=== PATIENT | male | born 1930 | race Caucasian/White ===

== ENCOUNTER → 2017-11-05 | Outpatient (CLI) | payer OTHER ==
[~2017-11-05] MED LIST: ACET500 PO; ALBU90OI INH; AMOCLA500 PO; ASCO500 PO; Acetaminophen325 M1 PO; BISA10S PR; CALMAGZIN PO; CEPH500 PO; CETI5 PO; CHOL10002 PO; CLARITIN10 MG PO; CVS DISPOSABLE399 ML PR; DOCU100 PO; ELIQUIS5 MG PO; FURO20 PO; Ferrous Sulfat324 MG PO; GABA400 PO; HYDACE5; HYDR1TAB94 PO; Ipratropium Bro30 ML; LIDO5TP TOP; LIDO700A20 TOP; LISI20; LORA10ER; LORA10ER PO; MAGOXI400 PO; MELA3 PO; METO25ER; METO50 PO; METO50ER; MULVIT PO; MULVITMINF PO; Milk Of Ma400 MG/5 M PO; Mirtazapine7.5 MG PO; POTA20PAC PO; SENN187 PO; Stool Softener100 MG PO; TAMS.4ER PO; TERA2; TERA5 PO; TRAM50 PO; TRIHYD253A; WARF5; WARF5 PO; WARF7.5 PO; Zestril40 MG PO
[2017-11-05 12:49] LABS: Hematocrit 40.4 % (37.0-53.0); Hemoglobin 13.2 g/dL (13.5-17.5); Mean Corpuscular HGB 29.7 pg (26.0-34.0); Mean Corpuscular HGB Conc 32.7 g/dL (31.5-36.5); Mean Corpuscular Volume 91 fL (80-100); Platelet Count 150 K/mm3 (150-400); RDW Coefficient Variation 14.1 % (11.7-14.2); Red Blood Cell Count 4.44 M/mm3 (4.30-5.90); White Blood Cell Count 3.37 K/mm3 (4.00-11.30)
[2017-11-05 12:57] LABS: Anion Gap 4 mmol/L (6-16); Blood Urea Nitrogen 17 mg/dL (8-24); Bun/Creatinine Ratio 21.5 (12.0-20.0); CO2, Blood 29 mmol/L (21-32); Calcium, Blood 8.6 mg/dL (8.5-10.1); Chloride, Blood 107 mmol/L (98-108); Creatinine, Blood 0.79 mg/dL (0.60-1.20); Glomerular Filtration Rate >60 (60-); Glucose, Blood 80 mg/dL (70-99); Potassium, Blood 4.3 mmol/L (3.5-5.5); Sodium, Blood 140 mmol/L (136-145)
[2017-11-05 15:00] LABS: Source, Urine Clean Catch
[2017-11-05 15:07] LABS: Appearance, Urine Clear (Clear); Bilirubin, Urine Neg (Neg); Blood, Urine Neg (Neg); Color, Urine Yellow (P-Yellow); Glucose Qualitative, Urine Neg (Neg); Ketones, Urine Neg (Neg); Leukocyte Esterase, Urine Neg (Neg); Nitrite, Urine Neg (Neg); Protein, Urine 3+ (Neg); Urobilinogen, Urine NORM (Normal)
[2017-11-05 15:25] LABS: Bacteria Rare /hpf; Mucus Light (0-Heavy); Red Blood Cells, Urine Not Seen /hpf (0-2); Squamous Epithelial Cells Rare /hpf (Few); White Blood Cells, Urine Not Seen /hpf (0-5)
== END | disposition home or self-care (01) ==
LOC: EDSTATUS 09:31 → LAB UVN 12:27
PROVIDERS: Family Medicine
DX: I48.2 Chronic atrial fibrillation (principal); D64.9 Anemia, unspecified; I10 Essential (primary) hypertension; J44.9 Chronic obstructive pulmonary disease, unspecified; Z89.512 Acquired absence of left leg below knee
CPT/HCPCS: 80048; 81001; 85027

== ENCOUNTER → 2018-03-19 | Outpatient (CLI) | payer OTHER ==
[~2018-03-19] MED LIST changes: +ALBU3IS INH; +ATROPINE 0.01%-10 ML SL; -Acetaminophen325 M1 PO; +Acetaminophen325 M1 PR; +Colace100 MG PO; +LORA2L PO; +METO25ER PO; +MIRALAX17 GM PO; +MORP20L SL; +ONDA4ODT MM; +OSEL75CA PO; +OXYC5 PO; +QUET25 PO; +SCOPOLAMINE1 EACH TOP
[2018-03-19 22:02] LABS: Bilirubin, Urine Neg (Neg); Blood, Urine Neg (Neg); Glucose Qualitative, Urine 1+ (Neg); Ketones, Urine 1+ (Neg); Leukocyte Esterase, Urine Neg (Neg); Nitrite, Urine Neg (Neg); Protein, Urine 4+ (Neg); Specific Gravity, Urine 1.025 (1.003-1.022); Urobilinogen, Urine NORM (Normal)
[2018-03-19 22:16] LABS: Appearance, Urine Hazy (Clear); Color, Urine Yellow (P-Yellow)
[2018-03-19 22:17] LABS: Amorphous Mod ({null, 0-Heavy}); Bacteria Few /hpf; Hyaline Casts 0-2 /lpf (0-2); Red Blood Cells, Urine Not Seen /hpf (0-2); Squamous Epithelial Cells Few /hpf (Few); White Blood Cells, Urine 0-2 /hpf (0-5)
== END | disposition home or self-care (01) ==
LOC: EDSTATUS 09:34 → LAB UVN 21:43
PROVIDERS: Family Medicine
DX: R10.9 Unspecified abdominal pain (principal)
CPT/HCPCS: 81001

== ENCOUNTER → 2018-03-26 | Outpatient (CLI) | payer OTHER ==
[2018-03-26 13:47] LABS: Source, Urine Clean Catch
[2018-03-26 14:09] LABS: Appearance, Urine Clear (Clear); Bilirubin, Urine Neg (Neg); Blood, Urine Neg (Neg); Color, Urine Yellow (P-Yellow); Glucose Qualitative, Urine Neg (Neg); Ketones, Urine Neg (Neg); Leukocyte Esterase, Urine Neg (Neg); Nitrite, Urine Neg (Neg); Protein, Urine 4+ (Neg); Urobilinogen, Urine NORM (Normal)
[2018-03-26 14:23] LABS: Red Blood Cells, Urine 0-2 /hpf (0-2); Squamous Epithelial Cells Rare /hpf (Few); White Blood Cells, Urine 0-2 /hpf (0-5)
[2018-03-26 14:24] LABS: Bacteria Rare /hpf
== END | disposition home or self-care (01) ==
LOC: EDSTATUS 09:32 → LAB UVN 13:39
PROVIDERS: Family Medicine
DX: N39.0 Urinary tract infection, site not specified (principal)
CPT/HCPCS: 81001

== ENCOUNTER → 2018-03-31 | Outpatient (CLI) | payer OTHER ==
[2018-03-31 11:46] LABS: Hematocrit 38.5 % (37.0-53.0); Hemoglobin 12.2 g/dL (13.5-17.5); Mean Corpuscular HGB 28.2 pg (26.0-34.0); Mean Corpuscular HGB Conc 31.7 g/dL (31.5-36.5); Mean Platelet Volume 9.7 fL (9.1-12.4); Platelet Count 153 K/mm3 (150-400); RDW Coefficient Variation 13.5 % (11.7-14.2); RDW Standard Deviation 43.5 fL (35.1-46.3); Red Blood Cell Count 4.32 M/mm3 (4.30-5.90); White Blood Cell Count 6.87 K/mm3 (4.00-11.30)
[2018-03-31 11:47] LABS: Mean Corpuscular Volume 89 fL (80-100)
[2018-03-31 12:08] LABS: Alanine Aminotransfer (ALT/SGP 102 U/L (12-78); Albumin, Blood 2.2 g/dL (3.4-5.0); Albumin/Globulin Ratio 0.6 (0.8-1.8); Alk Phos 168 U/L (50-136); Anion Gap 7 mmol/L (6-16); Aspartate Aminotrans (AST/SGOT 247 U/L (12-37); Bilirubin, Total 0.5 mg/dL (0.1-1.0); Blood Urea Nitrogen 32 mg/dL (8-24); Bun/Creatinine Ratio 28.1 (12.0-20.0); CO2, Blood 27 mmol/L (21-32); Calcium, Blood 8.1 mg/dL (8.5-10.1); Chloride, Blood 110 mmol/L (98-108); Creatinine, Blood 1.14 mg/dL (0.60-1.20); Globulin, Blood 3.8 g/dL (2.2-4.0); Glomerular Filtration Rate >60 (60-); Glucose, Blood 109 mg/dL (70-99); Potassium, Blood 4.4 mmol/L (3.5-5.5); Sodium, Blood 144 mmol/L (136-145)
== END | disposition home or self-care (01) ==
LOC: EDSTATUS 09:34 → LAB UVN 11:39
PROVIDERS: Family Medicine
DX: R94.5 Abnormal results of liver function studies (principal); D64.9 Anemia, unspecified; F02.81 Dementia in other diseases classified elsewhere, unspecified severity, with behavioral disturbance; E72.20 Disorder of urea cycle metabolism, unspecified
CPT/HCPCS: 80053; 82140; 85027

== ENCOUNTER 2018-04-02 16:35 | Inpatient (IN) | payer OTHER ==
[~2018-04-02] VITALS: Ht 188 cm; Wt 74.0 kg
[~2018-04-02 16:35] MED LIST changes: -ALBU3IS INH; -ATROPINE 0.01%-10 ML SL; -Colace100 MG PO; -LORA2L PO; -METO25ER PO; -MIRALAX17 GM PO; -MORP20L SL; -ONDA4ODT MM; -OSEL75CA PO; -OXYC5 PO; -QUET25 PO; -SCOPOLAMINE1 EACH TOP
[2018-04-02 18:03] LABS: International Normalized Ratio 1.42; Prothrombin Time Results 14.6 Sec (9.7-11.5)
[2018-04-02] MEDS ORDERED: MIRALAX17 GM PO (20:24)
[2018-04-02] MEDS ORDERED: OSEL75CA PO (20:26)
[2018-04-02] MEDS ORDERED: Colace100 MG PO (20:27)
[2018-04-02] MEDS ORDERED: QUET25 PO (20:30)
[2018-04-02] MEDS ORDERED: OXYC5 PO (20:35)
--- NOTE | 2018-04-03 05:19 | NUR ---
Rn summary: Patient was admitted to floor via stretcher from the ED last evening at 2001. Son is also at bedside. Son states he wants father to be a full code. Pt is confused, oriented to self, speech is sometimes unclear but he follows directions and is coopertive when asked. He does call out for "help" about every 5-10 minutes but forgets most of the time what he wants. Pt was medicated for pain x1 at 0126 with fentanyl 25 mcg for abdominal pain. Pt did dose on and off and stopped c/o discomfort. Pt's main complaint has been being very thirsty. Pt is NPO for possible surgery this am. Pt has received frequent oral care with green sponges in water with some relief. Patient with diminished breathsounds fatuma bases. Pt is on tele which shows atrial fib rate 90-115 with occ PVC's. Pt has been incontinent of urine and small soft brown stool. Pt has a redened area on his coccyx. It is not open. Son states he had an open area there a year ago. Mepilex applied. Call light is in reach. Pt is on 2 liters O2 but does not leave it on. Pt did pull out first IV at the beginning of shift. Pt has recieved freq monitoring and cares. Will continue to assist as needed.
[2018-04-03 05:32] LABS: Albumin, Blood 1.8 g/dL (3.4-5.0); Albumin/Globulin Ratio 0.5 (0.8-1.8); Bilirubin, Total 0.7 mg/dL (0.1-1.0); Bun/Creatinine Ratio 27.7 (12.0-20.0); Calcium, Blood 8.2 mg/dL (8.5-10.1); Creatinine, Blood 1.55 mg/dL (0.60-1.20); Globulin, Blood 3.9 g/dL (2.2-4.0); Potassium, Blood 4.3 mmol/L (3.5-5.5); Total Protein, Blood 5.7 g/dL (6.4-8.2)
--- NOTE | 2018-04-03 10:24 | NUR ---
AM ASSESSMENT PT HAS BEEN YELLING OUT FOR FLUIDS/FOOD, REQUIRE FREQUENT REORIENT, REASSURANCE, REDIRECT. DR CLARK IN TO SEE HIM, ORDER CONSULT DR WHIPPLE (SURG). DR WHIPPLE ORDER HIDA SCAN & CL NECTAR THICK DIET. WILL CONTINUE NPO IN PREP FOR HIDA SCAN @ APPROX 1300/NUCMED.
--- NOTE | 2018-04-03 11:09 | NUR ---
ECHOCARDIOGRAM COMPLETE
--- NOTE | 2018-04-03 11:17 | NUR ---
NOTIFIED DR CLARK OF PT C/O ABD PAIN AND PLANS FOR HIDA SCAN THIS AFTERNOON. NEW ORDER FOR TORADOL 15MG IV ONCE FOR SEVERE PAIN ENTERED.
--- NOTE | 2018-04-03 16:32 | NUR ---
SUMMARY PT IS A/O X1-2, VERY FORGETFUL, REQUIRES FREQUENT REORIENTATION. THIS AM HE WAS ANXIOUS YELLING OUT @ X'S BECAUSE HE WAS NPO FOR POSSIBLE SURG. DR CLARK IN TO SEE HIM THIS AM, PT C/O LOWER ABD PAIN, PRN FENTANYL 25 MCG [address] FOR RELIEF. DR WHIPPLE IN ORDER HIDA SCAN. PT CONTINUE NPO UNTIL PROCEDURE @ 1300. DR GIBBS NECTAR THICK CL DIET. STATE WILL REASSESS DIET AFTER RESULTS HIDA SCAN TOMORROW. PT STEPSON IN TO SEE HIM, QUESTIONS ANSWERED TO HIS SATISFACTION. TELE D/C'D TODAY, AFIB @ THE TIME, HX OF, HR TACHY 100-110. D/C CONTINUOS LR INFUSION, IV ANTIBX CONTINUE R/T PLEURAL EFFUSIONS.
--- NOTE | 2018-04-04 04:58 | NUR ---
SHIFT SUMMARY PT CONFUSED, AGITATED AT TIMES. YELLS FREQUENTLY. ONLY SLEEPING FOR APPROX AN HOUR THIS EVENING. YELLS OUT "HELP ME" BUT IS UNABLE TO EXPRESS ANY NEEDS WHEN ASKED. DENIED PAIN THROUGHOUT THE SHIFT. PT RESTLESS BUT OTHERWISE NO NONVERBAL S/S OF PAIN. PT REMOVES BLANKETS AND GOWN. ALSO RIPPED OUT HIS IV THIS SHIFT. SMALL SOFT BROWN BM X 2 THIS SHIFT. INCONTINENT OF BOWEL AND BLADDER. ATTENDS IN PLACE. CHANGED NEEDED. L BKA. PT ON BEDREST AT THIS TIME. TURNED PT THROUGHOUT THE NIGHT. PT'S VSS. LYING IN BED AND YELLING OUT AT THIS TIME. OTHERWISE NO ACUTE CHANGES. WILL CONTINUE TO MONITOR AND REPORT TO DAY RN.
[2018-04-04 05:34] LABS: Bun/Creatinine Ratio 29.5 (12.0-20.0); Calcium, Blood 8.7 mg/dL (8.5-10.1); Creatinine, Blood 1.32 mg/dL (0.60-1.20); Potassium, Blood 4.1 mmol/L (3.5-5.5)
[2018-04-04 13:41] LABS: Appearance, Urine Clear (Clear); Bilirubin, Urine Neg (Neg); Blood, Urine Neg (Neg); Color, Urine Yellow (P-Yellow); Glucose Qualitative, Urine Neg (Neg); Ketones, Urine Neg (Neg); Leukocyte Esterase, Urine Neg (Neg); Nitrite, Urine Neg (Neg); Protein, Urine 3+ (Neg); Urobilinogen, Urine 2+ (Normal)
[2018-04-04 13:53] LABS: Bacteria Not Seen /hpf; Red Blood Cells, Urine Not Seen /hpf (0-2); Squamous Epithelial Cells Few /hpf (Few); White Blood Cells, Urine 0-2 /hpf (0-5)
--- NOTE | 2018-04-04 19:54 | NUR ---
summary PT CONTINUES CONFUSED/FORGETFUL YELLING OUT FOR HELP T/O DAY, REQUIRES FREQUENT MONITOR, 1:1 RN/PROCESSING ENGINEER SITTER & REORIENT/REASSURANCE. HE STATE BACK DISCOMFORT, FREQUENTLY REPOSITIONED & SUPPORTED WITH PILLOWS. FENTANYL 25 MCG IV GIVEN X 2 TODAY FOR PAIN CONTROL. STATE NO UPPER ABD PAIN. DR WHIPPLE IN TO SEE HIM, STATE HIDA SCAN NEGATIVE FOR CHOLECYSTITIS, NO SURG NEEDED. IV ANTIBX CONTINUE. DR BUENO ORDER U/A, APPEARS NEGATIVE FOR UTI. LUNGS COARSE BASES, ON RA. HX AFIB, XARALTO RESTARTED TODAY. VSS.
[2018-04-05 06:10] LABS: BASOPHILS ABSOLUTE AUTO 0.02 K/mm3 (0.00-0.23); BASOPHILS PERCENT AUTO 1 % (0-2); EOSINOPHILS ABSOLUTE AUTO 0.03 K/mm3 (0.00-0.68); EOSINOPHILS PERCENT AUTO 1 % (0-6); Hematocrit 38.3 % (37.0-53.0); Hemoglobin 11.8 g/dL (13.5-17.5); IMMATURE GRAN ABSOLUTE AUTO 0.06 K/mm3 (0.00-0.10); IMMATURE GRAN PERCENT AUTO 2 % (0-1); LYMPHOCYTES ABSOLUTE AUTO 0.37 K/mm3 (0.84-5.20); LYMPHOCYTES PERCENT AUTO 9 % (21-46); MONOCYTES ABSOLUTE AUTO 0.33 K/mm3 (0.16-1.47); MONOCYTES PERCENT AUTO 8 % (4-13); Mean Corpuscular HGB 27.8 pg (26.0-34.0); Mean Corpuscular HGB Conc 30.8 g/dL (31.5-36.5); Mean Corpuscular Volume 90 fL (80-100); Mean Platelet Volume 10.3 fL (9.1-12.4); NEUTROPHILS PERCENT AUTO 80 % (41-73); Platelet Count 208 K/mm3 (150-400); RDW Coefficient Variation 13.5 % (11.7-14.2); Red Blood Cell Count 4.24 M/mm3 (4.30-5.90); White Blood Cell Count 4.11 K/mm3 (4.00-11.30)
[2018-04-05 06:18] LABS: Bun/Creatinine Ratio 26.4 (12.0-20.0); Calcium, Blood 8.7 mg/dL (8.5-10.1); Creatinine, Blood 1.29 mg/dL (0.60-1.20); Potassium, Blood 4.1 mmol/L (3.5-5.5)
--- NOTE | 2018-04-05 08:26 | NUR ---
SHIFT SUMMARY PT ALERT, ORIENTED TO SELF, CONFUSED. APPROX. 2054 TELEPHONE ORDER FOR HOME MEDICATION FROM [facility]. PT CALLED OUT FOR HELP SEVERAL TIMES AN HOUR. PT C/O PAIN IN ABD, RLQ AND LUQ POINTED TO BY PT. PT DENIES NAUSEA AND CHEST PRESSURE. ABD SOFT; BTX4. HONEY LIQUID AND ASPIRATION PRECAUTIONS. LUNGS DIM IN BASES BILAT. MEPILEX TO COCCYX. PT MAKES SMALL ADJUSTMENTS TO POSITION IN BED. PT REPOSITIONED T/O SHIFT. EARLY THIS AM, DR. PINEDA NOTIFIED PT AGGITATED, CALLING OUT, WAKING AFTER A FEW MIN FROM SLEEP YELLING FOR HELP, PT PULLED SEVERAL IV'S AND PT REPORT OF WORRY; PT SITUATION DISCUSSED. REPORT GIVEN TO DAY SHIFT RN.
--- NOTE | 2018-04-05 19:15 | NUR ---
NON VIOLENT RESTRAINTS PLACED, BILATERAL WRIST, PER DR DUE TO PI=UULING OUT IVS. PT CALLS OUT THROUGHOUT THE DAY. C/O ABD PAIN MEDICATED PER EMAR. HX OF ANXIETY, ONE TIME DOSES OF XANAX ORDERED. PT TURN AND CHANGED FREQUENTLY. HIGH FALL RISK, BED ALRAM ON. NO OTHER SIGNIFICANT CHANGES.
[2018-04-05 21:37] LABS: Anion Gap 9 mmol/L (6-16); Blood Urea Nitrogen 34 mg/dL (8-24); Bun/Creatinine Ratio 22.4 (12.0-20.0); CO2, Blood 26 mmol/L (21-32); Calcium, Blood 8.6 mg/dL (8.5-10.1); Chloride, Blood 113 mmol/L (98-108); Creatinine, Blood 1.52 mg/dL (0.60-1.20); Glomerular Filtration Rate 46 (60-); Glucose, Blood 114 mg/dL (70-99); Phosphorus, Blood 3.1 mg/dL (2.5-4.9); Potassium, Blood 3.6 mmol/L (3.5-5.5); Sodium, Blood 148 mmol/L (136-145)
--- NOTE | 2018-04-06 05:16 | NUR ---
SHIFT SUMMARY: PT IS ALERT AND ORIENTED TO SELF. PT IS VERY ANXIOUS, CONSTANTLY CALLING OUT FOR HELP. PT IS IN BL WRIST RESTRAINTS BECAUSE HE HAS PULLED OUT MULTIPLE IV'S. PT DOES NOT USE HIS CALL LIGHT. PT INCONTINENT SEVERAL TIMES OVERNIGHT, CHANGED AND CLEANED NEEDED. PT SLEPT VERY LITTLE. PT SHOWS NO S/S FOR PAIN, NAUSEA, VOMITING, OR SOB. NO ACUTE CHANGES THIS SHIFT. BED IN LOW POSITION, CALL LIGHT WITHIN REACH, BED ALARM SET.
--- NOTE | 2018-04-06 14:27 | NUR ---
Initial Visit: Palliative Care Consult for comfort care. Pt resting in bed and is pleasantly confused. He is A&O x1. He appears comfortable with a PAINAD score of 0/10. Pt's son Charly is present during visit ([phone]). Engaged in therapeutic conversation about goals of care for Pt. Discussed current POLST on file that was signed by Dr Benavides and Pt's in October of 2017. POLST states DNR, Comfort measures only, and no artificial nutrition by tube. Charly is agreeable to procede as POLST states. Educated Charly on comfort measures and hospice and he is agreeable. Charly reports no concerns at this time. Spoke with Dr Guerrier and she is agreeable to comfort measures and hospice. Entered orders for comfort care order set including medications, D/C IV antibiotics per Dr Guerrier's V/O and per completed POLST, and D/C maintenance medications per Dr Guerrier's V/O. Spoke with social service Charo Rios and she reports that she will start discharge plan for Pt on hospice. Pt is comfort care and will remain available for symptom management.
--- NOTE | 2018-04-06 19:02 | NUR ---
SHIFT SUMMARY FLOR WAS CHANGED TO COMFORT CARE TODAY. WING INSERTED FOR COMFORT, TOLERATED WELL. ORIENTED TO SELF. SON VISITED AND SPOKE TO PALLIATIVE (SEE THEIR NOTE) LOW PO INTAKE TODAY, REQUIRES ASSIST TO EAT AND IS ON ASPIRATON PRECAUTIONS WITH THICKENED LIQUID. Q2 TURN, COCCYX HAS MEPILEX TO PROTECT. TOOK PILLS WHOLE WITH PUDDING. PROBABLE DC TO SNF TOMORROW WITH HOSPICE.
--- NOTE | 2018-04-07 05:49 | NUR ---
NOC SHIFT SUMMARY PT ON COMFOR MEASURES. HAS BEEN REPOSITIONED THROUGHOUT THE NIGHT PER [employer]. PT HAS BEEN SLEEPING, AWAKES TO VOICE, RECEPTIVE AND RESPONSIVE TO CARE. NO REQUESTS THIS NIGHT. PT DENIES PAIN AND DOES NOT APPEAR TO BE IN PAIN. MECCA PATENT AND DRANING.
[2018-04-07] MEDS ORDERED: MORP20L SL (14:16)
[2018-04-07] MEDS ORDERED: ATROPINE 0.01%-10 ML SL (14:18)
[2018-04-07] MEDS ORDERED: ALBU3IS INH (14:18)
[2018-04-07] MEDS ORDERED: FURO20 PO (14:18)
[2018-04-07] MEDS ORDERED: METO25ER PO (14:19)
[2018-04-07] MEDS ORDERED: LORA2L PO (14:19)
[2018-04-07] MEDS ORDERED: SCOPOLAMINE1 EACH TOP (14:19)
[2018-04-07] MEDS ORDERED: ONDA4ODT MM (14:19)
--- NOTE | 2018-04-07 16:55 | NUR ---
DISCHARGE INSTRUCTIONS COMPLETED. REPORT CALLED TO EDEN AT [facility]. PT HAS BEEN QUIET SINCE THIS MORNING WHEN HE WAS CALLING OUT HELP ME HELP ME AND PULLING AT HIS CLOTHING AND IV. ATIVAN 1MG GIVEN AT THAT TIME AND HAS BEEN SLEEPING MOST OF REMAINDER OF DAY. STEP SON IN FOR SHORT TIME THIS AFTERNOON AND PROCESS CONTROL SPECIALIST FROM [facility] [place] HERE TO EVALUATE PT FOR HIS HOSPICE ADMISSION AT [facility]. TO [facility] VIA GURNEY WITH TAXICAB DISPATCHER.
== END 2018-04-07 16:20 | disposition hospice, home (50) | DRG 445 ==
LOC: ER 16:35 → MEDS 16:36 → ER 18:12 → MEDS 18:12
PROVIDERS: Emergency Medicine; Internal Medicine; ADMIT Internal Medicine
DX: K80.20 Calculus of gallbladder without cholecystitis without obstruction (principal); N17.9 Acute kidney failure, unspecified; I50.32 Chronic diastolic (congestive) heart failure; E87.0 Hyperosmolality and hypernatremia; I48.91 Unspecified atrial fibrillation; J44.9 Chronic obstructive pulmonary disease, unspecified; I11.0 Hypertensive heart disease with heart failure; F03.90 Unspecified dementia, unspecified severity, without behavioral disturbance, psychotic disturbance, mood disturbance, and anxiety; Z66 Do not resuscitate; Z51.5 Encounter for palliative care; Z89.512 Acquired absence of left leg below knee
CPT/HCPCS: 36415; 51702; 71046; 71250; 74150; 78226; 80048; 80053; 80069; 81001; 82947; 85025; 85610; 85730; 93005; 93010; 93306; 96365; 96366; 96375; 96376; 99285-25; A9537; G0378; J1650; J1940; J2543; J3010; J7030; J7120

== ENCOUNTER → 2018-04-02 | Outpatient (CLI) | payer OTHER ==
[2018-04-02 14:29] LABS: BASOPHILS ABSOLUTE AUTO 0.01 K/mm3 (0.00-0.23); BASOPHILS PERCENT AUTO 0 % (0-2); EOSINOPHILS ABSOLUTE AUTO 0.01 K/mm3 (0.00-0.68); EOSINOPHILS PERCENT AUTO 0 % (0-6); Hematocrit 35.8 % (37.0-53.0); Hemoglobin 11.3 g/dL (13.5-17.5); IMMATURE GRAN PERCENT AUTO 1 % (0-1); LYMPHOCYTES ABSOLUTE AUTO 0.76 K/mm3 (0.84-5.20); LYMPHOCYTES PERCENT AUTO 7 % (21-46); MONOCYTES ABSOLUTE AUTO 0.83 K/mm3 (0.16-1.47); MONOCYTES PERCENT AUTO 8 % (4-13); Mean Corpuscular HGB 28.6 pg (26.0-34.0); Mean Corpuscular HGB Conc 31.6 g/dL (31.5-36.5); Mean Corpuscular Volume 91 fL (80-100); Mean Platelet Volume 11.5 fL (9.1-12.4); NEUTROPHILS ABSOLUTE AUTO 8.82 K/mm3 (1.96-9.15); NEUTROPHILS PERCENT AUTO 84 % (41-73); Platelet Count 146 K/mm3 (150-400); RDW Coefficient Variation 13.8 % (11.7-14.2); RDW Standard Deviation 45.8 fL (35.1-46.3); Red Blood Cell Count 3.95 M/mm3 (4.30-5.90); White Blood Cell Count 10.53 K/mm3 (4.00-11.30)
[2018-04-02 14:51] LABS: Albumin, Blood 1.9 g/dL (3.4-5.0); Albumin/Globulin Ratio 0.5 (0.8-1.8); Bilirubin, Total 0.5 mg/dL (0.1-1.0); Calcium, Blood 8.1 mg/dL (8.5-10.1); Creatinine, Blood 1.48 mg/dL (0.60-1.20); Globulin, Blood 4.1 g/dL (2.2-4.0); Potassium, Blood 4.4 mmol/L (3.5-5.5)
== END | disposition home or self-care (01) ==
LOC: EDSTATUS 09:39 → LAB UVN 13:58
PROVIDERS: Nurse Practitioner Family
DX: R94.5 Abnormal results of liver function studies (principal); D64.9 Anemia, unspecified; M62.81 Muscle weakness (generalized)
CPT/HCPCS: 80053; 85025; 86709

== ENCOUNTER → 2018-04-02 | Outpatient (CLI) | payer OTHER | END | disposition home or self-care (01) | LOC: LAB UVN 08:39 → EDSTATUS 09:38 | DX: F41.9 Anxiety disorder, unspecified (principal); R94.5 Abnormal results of liver function studies | CPT/HCPCS: 82140 ==